=== PATIENT | female | born 1970 | race Caucasian/White ===

== ENCOUNTER → 2017-06-10 | Outpatient (CLI) | payer MEDICAID ==
[~2017-06-10] MED LIST: MEDROL 4MG. DOSE4 MG PO; PERCOCET1 TAB PO; ROBITUSSIN DM120 ML PO; ZITHROMAX Z-PA250 M2 PO
[2017-06-10 08:16] LABS: HEMOGLOBIN 13.4 g/dL (12.2-16.2); LYMPH # 1.8 K/mm3 (0.7-4.5); LYMPH % 41.4 % (10-50.0)
[2017-06-10 09:05] LABS: BUN 23 mg/dL (7-18); GFR (ESTIMATED) 90 ML/MIN (59-)
[2017-06-11 19:48] LABS: Vitamin B12 399 pg/mL (211-946)
[2017-06-14 18:36] LABS: Antinuclear Antibodies, IFA Negative (.)
== END ==
LOC: LAB 07:53
PROVIDERS: Family Medicine
DX: R53.1 Weakness (principal); Z72.9 Problem related to lifestyle, unspecified; Z44.9 Encounter for fitting and adjustment of unspecified external prosthetic device